=== PATIENT | male | born 1955 | race Caucasian/White ===

== ENCOUNTER 2017-03-31 16:53 | Inpatient (IN) | payer BC ==
[2017-03-31 17:10] VITALS: BMI 29.0
--- NOTE | 2017-03-31 17:31 | PDOC ---
History of Present Illness - General History Source: Patient, Old Records Exam Limitations: No Limitations - History of Present Illness Initial Comments: 03/31/17 19:06 The patient is a 61 year old male, with a significant past medical history of hypertension, hyperlipidemia, diabetes, on dialysis (//Sat via AVR shunt to the left upper extremity), who presents to the emergency department for evaluation. The patient reports that he went to dialysis 2 days ago but was unable to receive dialysis due to a problem with his shunt. Today, he returned to get dialysis but was only able to receive partial dialysis but his shunt is still not functioning correctly. The patient was sent to the ED for further evaluation. Currently in the ED, the patient denies any pain. The patients primary language is [place]i. Allergies: None reported. Past Surgical History: AVR shunt to the left upper extremity. Social History: Former smoker. Denies alcohol or drug use. PCP: Dr. Hampton Local Coordinator: Dr. Hernandez Vascular Surgeon: Dr. Payam Celis <Barbi Goodson - Last Filed: 03/31/17 19:05> <Arcelia Hallman - Last Filed: 04/01/17 12:09> - General Chief Complaint: Dialysis Shunt Problem Stated Complaint: DIALYSYS SHUNT PROBLEM Time Seen by Provider: 03/31/17 17:18 Past History <Barbi Goodson - Last Filed: 03/31/17 19:05> - Past Medical History Anemia: No Asthma: No Cancer: No Cardiac Disorders: No CVA: No COPD: No CHF: No Dementia: No Diabetes: Yes () Dialysis: Yes GI Disorders: No Disorders: Yes (kidney stones - lithotripsy) HTN: Yes Hypercholesterolemia: Yes Liver Disease: No Suicide Attempt (Hx): No Seizures: No Thyroid Disease: No - Surgical History Abdominal Surgery: No Appendectomy: No Cardiac Surgery: No Cholecystectomy: No Lung Surgery: No Neurologic Surgery: No Orthopedic Surgery: No - Psycho/Social/Smoking Cessation Hx Suicidal Ideation: No Smoking Status: Yes Smoking History: Former smoker Have you smoked in the past 12 months: No Number of Cigarettes Smoked Daily: 0 If you are a former smoker, when did you quit?: 20 yrs ago Information on smoking cessation initiated: No Hx Alcohol Use: No Drug/Substance Use Hx: No Substance Use Type: None Hx Substance Use Treatment: No <Arcelia Hallman - Last Filed: 04/01/17 12:09> - Past Medical History Allergies/Adverse Reactions: Allergies Allergy/AdvReac Type Severity Reaction Status Date / Time No Known Drug Allergies Allergy Verified 03/31/17 17:06 Home Medications: Ambulatory Orders Amlodipine Besylate [Norvasc -] 10 mg PO DAILY #0 tablet 12/27/12 Furosemide [Lasix -] 40 mg PO BID 07/08/16 Labetalol HCl [Normodyne -] 200 mg PO BID 07/08/16 Glyburide 5 mg PO BID 07/10/16 Alfuzosin HCl [Alfuzosin HCl ER] 10 mg PO DAILY 11/19/16 Sevelamer Carbonate [Renvela -] 800 mg PO TIDCM #90 tab 11/21/16 Sodium Bicarbonate - 650 mg PO BID #60 tablet 11/21/16 Hydralazine HCl 10 mg PO QID #120 tablet 11/22/16 Colesevelam HCl [Welchol (Nf)] 3,750 mg PO DAILY 03/31/17 Review of Systems - Review of Systems Able to Perform ROS?: Yes Comments:: 03/31/17 19:02 GENERAL/CONSTITUTIONAL: No fever or chills. No weakness. HEAD, EYES, EARS, NOSE AND THROAT: No change in vision. No ear pain or discharge. No sore throat. CARDIOVASCULAR: No chest pain or shortness of breath. RESPIRATORY: No cough, wheezing, or hemoptysis. GASTROINTESTINAL: No nausea, vomiting, diarrhea or constipation. GENITOURINARY: No dysuria, frequency, or change in urination. MUSCULOSKELETAL: No joint or muscle swelling or pain. No neck or back pain. EXTREMITY: +AVR shunt problem. SKIN: No rash. NEUROLOGIC: No headache, vertigo, loss of consciousness, or change in strength/ sensation. ENDOCRINE: No increased thirst. No abnormal weight change. HEMATOLOGIC/LYMPHATIC: No anemia, easy bleeding, or history of blood clots. ALLERGIC/IMMUNOLOGIC: No hives or skin allergy. <Barbi Goodson - Last Filed: 03/31/17 19:05> *Physical Exam - Vital Signs Last Vital Signs Temp Pulse Resp BP Pulse Ox 98.1 F 65 19 147/67 99 03/31/17 17:06 03/31/17 17:06 03/31/17 17:06 03/31/17 17:06 03/31/17 17:06 <Barbi Goodson - Last Filed: 03/31/17 19:05> - Vital Signs Last Vital Signs Temp Pulse Resp BP Pulse Ox 98.1 F 65 19 147/67 99 03/31/17 17:06 03/31/17 17:06 03/31/17 17:06 03/31/17 17:06 03/31/17 17:06 - Physical Exam Comments: GENERAL: Awake, alert, and fully oriented, in no acute distress HEAD: No signs of trauma EYES: PERRLA, EOMI, sclera anicteric, conjunctiva clear ENT: Auricles normal inspection, hearing grossly normal, nares patent, oropharynx clear without exudates. Moist mucosa NECK: Normal ROM, supple, no lymphadenopathy, JVD, or masses LUNGS: Breath sounds equal, clear to auscultation bilaterally. No wheezes, and no crackles HEART: Regular rate and rhythm, normal S1 and S2, no murmurs, rubs or gallops ABDOMEN: Soft, nontender, normoactive bowel sounds. No guarding, no rebound. No masses EXTREMITIES: L forearm with AVF, +thrill, 2+ pitting edema to forearm. No erythema. Remainder of extremities with normal range of motion, no edema. No clubbing or cyanosis. No cords, erythema, or tenderness NEUROLOGICAL: Cranial nerves II through XII grossly intact. Normal speech, normal gait SKIN: Warm, Dry, normal turgor, no rashes or lesions noted. <Arcelia Hallman - Last Filed: 04/01/17 12:09> ED Treatment Course - LABORATORY CBC & Chemistry Diagram: 03/31/17 17:45 03/31/17 17:50 <Barbi Goodson - Last Filed: 03/31/17 19:05> - LABORATORY CBC & Chemistry Diagram: 04/01/17 06:30 04/01/17 05:35 <Arcelia Hallman - Last Filed: 04/01/17 12:09> Medical Decision Making - Medical Decision Making 03/31/17 17:[address] Payam Celis at 17:32, 18:05. Referred to answering service, awaiting callback. Dr. Celis returned call at 18:18, case discussed. <Barbi Goodson - Last Filed: 03/31/17 19:05> - Medical Decision Making 03/31/17 19:05 Case d/w Dr. Celis. Patient will need to be admitted for HD. Awaiting CMP results for potassium level. If elevated, will need emergent HD, will contact Dr. Wu. If wnl, can have shunt evaluated tomorrow and HD afterwards. Endorsed to Dr. Hall. <Arcelia Hallman - Last Filed: 04/01/17 12:09> *DC/Admit/Observation/Transfer - Attestations Scribe Attestion: 03/31/17 17:31 Documentation prepared by Barbi Goodson, acting as medical care administrator for Arcelia Hallman MD. <Barbi Goodson - Last Filed: 03/31/17 19:05> <Arcelia Hallman - Last Filed: 04/01/17 12:09> Diagnosis at time of Disposition: CKD (chronic kidney disease) Qualifiers: Chronic kidney disease stage: unspecified stage Qualified Code(s): N18.9 - Chronic kidney disease, unspecified
[2017-03-31 18:03] LABS: BASOPHIL 0.5 % (0-2.0); EOSINOPHIL 3.1 % (0-4.5); MCH 30.6 pg (25.7-33.7); MCHC 32.5 g/dl (32.0-35.9); MEAN CELL VOLUME 94.4 fl (80-96); MEAN PLT VOLUME 7.4 fl (7.5-11.1); NEUTROPHILS 67.3 % (42.8-82.8); PLATELET COUNT 213 K/MM3 (134-434); RDW 17.4 % (11.9-15.9); WHITE BLOOD COUNT 6.5 K/mm3 (4.0-10.0)
[2017-03-31 18:16] LABS: INR 1.04 (0.82-1.09); PROTHROMBIN TIME (PATIENT) 11.4 SEC (9.98-11.88)
[2017-03-31 18:48] LABS: ALBUMIN 2.5 g/dl (3.4-5.0); CALCIUM 7.1 mg/dL (8.5-10.1)
--- NOTE | 2017-03-31 18:52 | PN ---
Progress Note (short form) - Note Progress Note: Vascular Surgery Pt seen and examined. Had issues with cannulation of left forearm avf. Will check labs today. Will need venogram in am to check for any stenosis. Payam Celis DO
[2017-03-31 18:59] LABS: BILIRUBIN,TOTAL 0.2 mg/dL (0.2-1.0); COCKROFT - GAULT 11.19; TOT PROT 5.8 g/dl (6.4-8.2)
[2017-03-31 19:36] LABS: CREATININE 7.8 mg/dL (0.7-1.3)
--- NOTE | 2017-03-31 19:40 | PDOC ---
*Physical Exam - Vital Signs Last Vital Signs Temp Pulse Resp BP Pulse Ox 98.1 F 65 19 147/67 99 03/31/17 17:06 03/31/17 17:06 03/31/17 17:06 03/31/17 17:06 03/31/17 17:06 ED Treatment Course - LABORATORY CBC & Chemistry Diagram: 03/31/17 17:45 03/31/17 17:50 - ADDITIONAL ORDERS Additional order review: Laboratory Results 03/31/17 03/31/17 03/31/17 17:50 17:50 17:50 INR 1.04 Sodium 141 Potassium 5.5 H D Chloride 112 H Carbon Dioxide 15 L Anion Gap 14 BUN 79 H D Creatinine 7.8 H* D Creat Clearance w eGFR 7.05 Random Glucose 140 H D Calcium 7.1 L Total Bilirubin 0.2 D AST 44 H D ALT 45 Alkaline Phosphatase 162 H D Total Protein 5.8 L Albumin 2.5 L Blood Type O POSITIVE Antibody Screen Positive H 03/31/17 17:45 RBC 2.54 L D MCV 94.4 MCHC 32.5 RDW 17.4 H D MPV 7.4 L D Neutrophils % 67.3 Lymphocytes % 19.0 D Monocytes % 10.1 Eosinophils % 3.1 Basophils % 0.5 *DC/Admit/Observation/Transfer Diagnosis at time of Disposition: CKD (chronic kidney disease) Qualifiers: Chronic kidney disease stage: unspecified stage Qualified Code(s): N18.9 - Chronic kidney disease, unspecified - Discharge Dispostion Condition at time of disposition: Stable Admit: Yes
[2017-03-31] MEDS ORDERED: SODIUM POLYSTYRENE SULFONATE 15 GM/60 ML BOTTLE PO ONE (19:43)
[2017-03-31] MEDS ORDERED: SODIUM POLYSTYRENE SULFONATE 15 GM/60 ML BOTTLE ONE (20:22)
--- NOTE | 2017-03-31 20:50 | HP ---
<Osmar Vargas - Last Filed: 03/31/17 21:36> CHIEF COMPLAINT: Inability To Complete Dialysis PCP: Dr. Hampton HISTORY OF PRESENT ILLNESS: The patient is a 61 year old male, with past medical history of ESRD on dialysis for the past month via left forearm AV fistula, presents to the ED from dialysis center due to inability to complete dialysis secondary to issues with cannulation He denies fever, chills. Reports pain in left forearm for past 2-3 hours. PAST MEDICAL HISTORY: Hypertension, Hyperlipidemia, Diabetes, ESRD, anemia of chronic disease PAST SURGICAL HISTORY: Left forearm AVF Social History: Smoking: Former smoker 20 pack/year (quit 20 years ago) Alcohol: Denied Drugs: Denied Family History: Diabetes Allergies No Known Drug Allergies Allergy (Verified 03/31/17 17:06) HOME MEDICATIONS: Home Medications Medication Instructions Recorded Amlodipine Besylate [Norvasc -] 10 mg PO DAILY #0 tablet 12/27/12 Furosemide [Lasix -] 40 mg PO BID 07/08/16 Labetalol HCl [Normodyne -] 200 mg PO BID 07/08/16 Glyburide 5 mg PO BID 07/10/16 Alfuzosin HCl [Alfuzosin HCl ER] 10 mg PO DAILY 11/19/16 Sevelamer Carbonate [Renvela -] 800 mg PO TIDCM #90 tab 11/21/16 Sodium Bicarbonate - 650 mg PO BID #60 tablet 11/21/16 Hydralazine HCl 10 mg PO QID #120 tablet 11/22/16 Colesevelam HCl [Welchol (Nf)] 3,750 mg PO DAILY 03/31/17 REVIEW OF SYSTEMS CONSTITUTIONAL: Absent: fever, chills, diaphoresis, generalized weakness, malaise, loss of appetite, weight change HEENT: Absent: rhinorrhea, nasal congestion, throat pain, throat swelling, difficulty swallowing, mouth swelling, ear pain, eye pain, visual changes CARDIOVASCULAR: Absent: chest pain, syncope, palpitations, irregular heart rate, lightheadedness , peripheral edema RESPIRATORY: Absent: cough, shortness of breath, dyspnea with exertion, orthopnea, wheezing, stridor, hemoptysis GASTROINTESTINAL: Absent: abdominal pain, abdominal distension, nausea, vomiting, diarrhea, constipation, melena, hematochezia GENITOURINARY: Absent: dysuria, frequency, urgency, hesitancy, hematuria, flank pain, genital pain MUSCULOSKELETAL: Absent: myalgia, arthralgia, joint swelling, back pain, neck pain SKIN: Absent: rash, itching, pallor HEMATOLOGIC/IMMUNOLOGIC: Present: As mentioned in HPI Absent: easy bleeding, easy bruising, frequent infections ENDOCRINE: Absent: unexplained weight gain, unexplained weight loss, heat intolerance, cold intolerance NEUROLOGIC: Absent: headache, focal weakness or paresthesias, dizziness, unsteady gait, seizure, mental status changes, bladder or bowel incontinence PSYCHIATRIC: Absent: anxiety, depression, suicidal or homicidal ideation, hallucinations. PHYSICAL EXAMINATION Vital Signs - 24 hr 03/31/17 03/31/17 20:46 20:57 Temperature 97.6 F Pulse Rate [ 63 Right] Respiratory 18 Rate Blood Pressure 163/70 [Right Arm] O2 Sat by Pulse 99 99 Oximetry (%) GENERAL: Awake, alert, and fully oriented, in no acute distress HEENT: Atraumatic. PERRLA, EOMI. Moist mucosa. No JVD LUNGS: No distress, speaks full sentences, clear to auscultation bilaterally HEART: Regular rate and rhythm, normal S1 and S2, no murmurs, rubs or gallops, peripheral pulses normal and equal bilaterally. ABDOMEN: Soft, nontender, normoactive bowel sounds. No guarding, no rebound. No masses EXTREMITIES: (+) Left arm radial cephalic fistula, Normal range of motion, 1+ edema bilateral lower extremities. No clubbing or cyanosis. NEUROLOGICAL: Cranial nerves II through XII grossly intact. Normal speech, normal gait, no focal sensorimotor deficits SKIN: Warm, Dry, normal turgor, no rashes or lesions noted. Labs: CBCD WBC 6.5 K/mm3 (4.0-10.0) 03/31/17 17:45 RBC 2.54 M/mm3 (4.00-5.60) L D 03/31/17 17:45 Hgb 7.8 GM/dL (11.7-16.9) L D 03/31/17 17:45 Hct 24.0 % (35.4-49) L D 03/31/17 17:45 MCV 94.4 fl (80-96) 03/31/17 17:45 MCHC 32.5 g/dl (32.0-35.9) 03/31/17 17:45 RDW 17.4 % (11.9-15.9) H D 03/31/17 17:45 Plt Count 213 K/MM3 (134-434) D 03/31/17 17:45 MPV 7.4 fl (7.5-11.1) L D 03/31/17 17:45 CMP Sodium 141 mmol/L (136-145) 03/31/17 17:50 Potassium 5.5 mmol/L (3.5-5.1) H D 03/31/17 17:50 Chloride 112 mmol/L (98-107) H 03/31/17 17:50 Carbon Dioxide 15 mmol/L (21-32) L 03/31/17 17:50 Anion Gap 14 (8-16) 03/31/17 17:50 BUN 79 mg/dL (7-18) H D 03/31/17 17:50 Creatinine 7.8 mg/dL (0.7-1.3) H* D 03/31/17 17:50 Creat Clearance w eGFR 7.05 (>60) 03/31/17 17:50 Calcium 7.1 mg/dL (8.5-10.1) L 03/31/17 17:50 Total Bilirubin 0.2 mg/dL (0.2-1.0) D 03/31/17 17:50 AST 44 U/L (15-37) H D 03/31/17 17:50 ALT 45 U/L (12-78) 03/31/17 17:50 Alkaline Phosphatase 162 U/L (45-117) H D 03/31/17 17:50 Total Protein 5.8 g/dl (6.4-8.2) L 03/31/17 17:50 Albumin 2.5 g/dl (3.4-5.0) L 03/31/17 17:50 Imaging: EXAM#: TYPE/EXAM: RESULT: [id number] RAD/CHEST PA LAT HISTORY PROVIDED: Rule out infiltrate PA and lateral projections of the chest are submitted. The heart size is enlarged. The lung jeong are free of pulmonary infiltrates or pleural effusions. There are slightly increased interstitial markings diffusely that may be chronic in nature. Minimal platelike atelectasis is seen at the right lung base. IMPRESSION: Cardiomegaly, no acute pathology. Reported By: Fredi Bains MD 03/31/172103 ASSESSMENT/PLAN: 1. 61 yo m with hx of ESRD that presents to the ED with possible clot in left radial cephalic fistula suspected. Hemodialysis was attempted today however it is unclear if any fluid was removed. Patient has no signs of respiratory distress of fluid overload. He has urinary output. - NPO after midnight - Venography in AM - Vascular surgery consult - If needed temporary dialysis access will be placed - Continue current meds - Repeat hemoglobin in AM Hospitalized for observation. Documentation prepared by Osmar Vargas, acting as medical receptionist assistant for Dr. Sal MD. <Chang Huang - Last Filed: 03/31/17 23:03> Visit type - Emergency Visit Emergency Visit: Yes ED Registration Date: 03/31/17 Care time: The patient presented to the Emergency Department on the above date and was hospitalized for further evaluation of their emergent condition. - New Patient This patient is new to me today: Yes Date on this admission: 03/31/17 - Critical Care Critical Care patient: No
[2017-03-31] MEDS: LABETALOL HCL 200 MG TABLET (FP) PO SCH (23:32)
[2017-03-31] MEDS: hydrALAZINE HCL 10 MG TABLET PO SCH (23:32)
[2017-03-31] MEDS: SODIUM BICARBONATE 650 MG TABLET PO SCH (23:32)
[2017-03-31] MEDS: HEPARIN NA (PORCINE) 5,000 UNITS/ML 1ML VIAL SQ SCH (23:33)
[2017-04-01] MEDS: INSULIN SLIDING SCALE (NOVOLOG) 1 VIAL SQ SCH ×3 (05:59→17:36)
[2017-04-01] MEDS: FUROSEMIDE 40 MG TABLET (FP) PO SCH ×3 (05:59→17:36)
[2017-04-01 07:36] LABS: BASOPHIL 0.6 % (0-2.0); MCH 31.3 pg (25.7-33.7); MEAN CELL VOLUME 94.8 fl (80-96); MEAN PLT VOLUME 7.9 fl (7.5-11.1); NEUTROPHILS 62.8 % (42.8-82.8); PLATELET COUNT 191 K/MM3 (134-434); RDW 17.6 % (11.9-15.9); WHITE BLOOD COUNT 5.6 K/mm3 (4.0-10.0)
[2017-04-01 08:07] LABS: CALCIUM 7.2 mg/dL (8.5-10.1); COCKROFT - GAULT 11.05
[2017-04-01] MEDS: SEVELAMER CARBONATE 800 MG TAB (FP) PO SCH ×4 (08:40→17:36)
[2017-04-01 09:00] LABS: CREATININE 7.9 mg/dL (0.7-1.3)
[2017-04-01] MEDS ORDERED: COLESEVELAM HCL PO SCH (10:00)
[2017-04-01] MEDS: HEPARIN NA (PORCINE) 5,000 UNITS/ML 1ML VIAL SQ SCH ×2 (10:24→21:17)
[2017-04-01] MEDS: LABETALOL HCL 200 MG TABLET (FP) PO SCH ×2 (10:24→21:17)
[2017-04-01] MEDS: amLODIPine BESYLATE 10 MG TABLET (FP) PO SCH (10:24)
[2017-04-01] MEDS: hydrALAZINE HCL 10 MG TABLET PO SCH ×4 (10:24→21:17)
[2017-04-01] MEDS: SODIUM BICARBONATE 650 MG TABLET PO SCH (10:24)
[2017-04-01] MEDS ORDERED: DEXTROSE 50%-WATER 50 ML VIAL IVPUSH ONE (12:00)
--- NOTE | 2017-04-01 14:29 | PN ---
Physical Exam: SUBJECTIVE: Patient seen and examined OBJECTIVE: Vital Signs Period Temp Pulse Resp BP Sys/Adam Pulse Ox Last 24 Hr 97.4 F-98.6 F 60-72 17-20 122-176/61-86 98-99 GENERAL: The patient is awake, alert, and fully oriented, in no acute distress. HEAD: Normal with no signs of trauma. EYES: PERRL, extraocular movements intact, sclera anicteric, conjunctiva clear. No ptosis. ENT: Ears normal, nares patent, oropharynx clear without exudates, moist mucous membranes. NECK: Trachea midline, full range of motion, supple. LUNGS: Breath sounds equal, clear to auscultation bilaterally, no wheezes, no crackles, no accessory muscle use. HEART: Regular rate and rhythm, S1, S2 without murmur, rub or gallop. ABDOMEN: Soft, nontender, nondistended, normoactive bowel sounds, no guarding, no rebound, no hepatosplenomegaly, no masses. EXTREMITIES: 2+ pulses, warm, well-perfused, no edema. NEUROLOGICAL: Cranial nerves II through XII grossly intact. Normal speech, gait not observed. PSYCH: Normal mood, normal affect. SKIN: Warm, dry, normal turgor, no rashes or lesions noted Laboratory Results - last 24 hr 04/01/17 04/01/17 04/01/17 05:34 05:35 06:30 WBC 5.6 RBC 2.51 L Hgb 7.8 L Hct 23.8 L MCV 94.8 MCHC 33.0 RDW 17.6 H Plt Count 191 MPV 7.9 Neutrophils % 62.8 Lymphocytes % 21.8 Monocytes % 10.8 H Eosinophils % 4.0 Basophils % 0.6 Sodium 143 Potassium 4.7 Chloride 114 H Carbon Dioxide 16 L Anion Gap 13 BUN 79 H Creatinine 7.9 H* POC Glucometer 80 Random Glucose 71 L D Calcium 7.2 L 04/01/17 11:35 WBC RBC Hgb Hct MCV MCHC RDW Plt Count MPV Neutrophils % Lymphocytes % Monocytes % Eosinophils % Basophils % Sodium Potassium Chloride Carbon Dioxide Anion Gap BUN Creatinine POC Glucometer 65 Random Glucose Calcium Active Medications Generic Name Dose Route Start Last Admin Trade Name Freq PRN Reason Stop Dose Admin Amlodipine Besylate 10 mg 04/01/17 10:00 04/01/17 10:24 Norvasc - PO 10 mg DAILY [facility] Administration Furosemide 40 mg 04/01/17 06:00 04/01/17 14:21 Lasix - PO Not Given BIDLASIX [facility] Heparin Sodium (Porcine) 5,000 unit 03/31/17 22:00 04/01/17 10:24 Heparin - SQ 5,000 unit BID [facility] Administration Hydralazine HCl 10 mg 03/31/17 22:00 04/01/17 14:23 Apresoline - PO Not Given QID [facility] Insulin Aspart 1 vial 04/01/17 07:00 04/01/17 11:36 Novolog Vial Sliding Scale - SQ Not Given TIDAC [facility] Protocol Labetalol HCl 200 mg 03/31/17 22:00 04/01/17 10:24 Normodyne - PO 200 mg BID [facility] Administration Non-Formulary Medication 3,750 mg 04/01/17 10:00 Colesevelam Hcl [Welchol (Nf)] PO DAILY [facility] Sevelamer Carbonate 800 mg 04/01/17 08:00 04/01/17 14:23 Renvela - PO Not Given TIDCM [facility] Sodium Bicarbonate 650 mg 03/31/17 22:00 04/01/17 10:24 Sodium Bicarbonate - PO 650 mg BID [facility] Administration Imaging: EXAM#: TYPE/EXAM: RESULT: [id number] RAD/CHEST PA LAT HISTORY PROVIDED: Rule out infiltrate PA and lateral projections of the chest are submitted. The heart size is enlarged. The lung jeong are free of pulmonary infiltrates or pleural effusions. There are slightly increased interstitial markings diffusely that may be chronic in nature. Minimal platelike atelectasis is seen at the right lung base. IMPRESSION: Cardiomegaly, no acute pathology. Reported By: Fredi Bains MD 03/31/17 8110 ASSESSMENT/PLAN: 61 year old male with CKD stage 5 on HD x one month; presented to the ED due to problems with AV shunt. Attempt dialysis today, then OR. #possible stenosis of AVF left forearm -venogram -attempt HD -bmp, cbc, electrolytes -vascular and renal consulted #CKD -trend labs -renvela 800mg tid -sodium [id number] po bid -HD #hypertension: -norvasc 10mg po qd -hydralazine 10mg po qid -lasix 40mg qd #diabetes mellitus II: -insulin SS -bgm FEN: Fluids; n/a Electrolytes: trend Diet: renal ; currently npo for OR VTE prophylaxis: haparin sq bid Disposition: needs HD and shunt correction Visit type - Emergency Visit Emergency Visit: Yes ED Registration Date: 03/31/17 Care time: The patient presented to the Emergency Department on the above date and was hospitalized for further evaluation of their emergent condition. - New Patient This patient is new to me today: Yes Date on this admission: 04/01/17 - Critical Care Critical Care patient: No
[2017-04-01] MEDS ORDERED: TAMSULOSIN HCL 0.4 MG CAP.ER.24H (FP) PO ONE ×2 (14:39→17:45)
--- NOTE | 2017-04-01 16:56 | CONSULT ---
Consult Consult Specialty:: Nephrology Reason for Consultation:: ESRD - History of Present Illness Chief Complaint: av fistula malfunction History of Present Illness: Pt is a 61 year old male with hx of HTN, ESRD, Chol, and DM who was sent in from HD for non functioning av-fistula. He is awake and alert. He denies shortness of breath. He is awake and alert. He denies fevers or chills. He denies pain in his arm. He has a left arm av fistula. - History Source History Provided By: Patient, Medical Record - Past Medical History Cardio/Vascular: Yes: CHF, HTN Renal/: Yes: Renal Inusuff, Hemodialysis Endocrine: Yes: Diabetes Mellitus - Alcohol/Substance Use Hx Alcohol Use: No - Smoking History Smoking history: Former smoker Have you smoked in the past 12 months: No Aproximately how many cigarettes per day: 0 If you are a former smoker, when did you quit?: 20 yrs ago Home Medications - Allergies Allergies/Adverse Reactions: Allergies Allergy/AdvReac Type Severity Reaction Status Date / Time No Known Drug Allergies Allergy Verified 03/31/17 17:06 - Home Medications Home Medications: Ambulatory Orders Amlodipine Besylate [Norvasc -] 10 mg PO DAILY #0 tablet 12/27/12 Furosemide [Lasix -] 40 mg PO BID 07/08/16 Labetalol HCl [Normodyne -] 200 mg PO BID 07/08/16 Glyburide 5 mg PO BID 07/10/16 Alfuzosin HCl [Alfuzosin HCl ER] 10 mg PO DAILY 11/19/16 Sevelamer Carbonate [Renvela -] 800 mg PO TIDCM #90 tab 11/21/16 Sodium Bicarbonate - 650 mg PO BID #60 tablet 11/21/16 Hydralazine HCl 10 mg PO QID #120 tablet 11/22/16 Colesevelam HCl [Welchol (Nf)] 3,750 mg PO DAILY 03/31/17 Family Disease History - Family Disease History Family History: Denies Review of Systems - Review of Systems Constitutional: reports: No Symptoms Eyes: reports: No Symptoms HENT: reports: No Symptoms Neck: reports: No Symptoms Cardiovascular: reports: No Symptoms Respiratory: reports: No Symptoms Gastrointestinal: reports: No Symptoms Genitourinary: reports: No Symptoms Musculoskeletal: reports: No Symptoms Integumentary: reports: No Symptoms Neurological: reports: No Symptoms Endocrine: reports: No Symptoms Hematology/Lymphatic: reports: No Symptoms Psychiatric: reports: No Symptoms Physical Exam Vital Signs: Vital Signs Temperature 98.8 F 04/01/17 13:40 Pulse Rate 66 04/01/17 16:44 Respiratory Rate 18 04/01/17 16:44 Blood Pressure 150/106 04/01/17 16:44 O2 Sat by Pulse Oximetry (%) 98 04/01/17 09:00 Constitutional: Yes: Calm Eyes: Yes: Conjunctiva Clear HENT: Yes: Atraumatic Cardiovascular: Yes: S1, S2 Respiratory: Yes: CTA Bilaterally Gastrointestinal: Yes: Soft Musculoskeletal: Yes: WNL Extremities: Yes: Other (left arm fistula) Neurological: Yes: Oriented Psychiatric: Yes: Oriented Labs: CBC, BMP 04/01/17 06:30 04/01/17 05:35 Laboratory Tests 03/31/17 04/01/17 17:45 06:30 WBC 6.5 5.6 Hgb 7.8 L D 7.8 L Plt Count 213 D 191 Laboratory Tests 03/31/17 17:50 Potassium 5.5 H D Imaging - Results Chest X-ray: Report Reviewed Problem List - Problems (1) Hyperkalemia Code(s): E87.5 - HYPERKALEMIA (2) Diabetes Code(s): E11.9 - TYPE 2 DIABETES MELLITUS WITHOUT COMPLICATIONS (3) HTN (hypertension) Code(s): I10 - ESSENTIAL (PRIMARY) HYPERTENSION (4) Hepatitis C Code(s): B19.20 - UNSPECIFIED VIRAL HEPATITIS C WITHOUT HEPATIC COMA (5) Hyperlipidemia Code(s): E78.5 - HYPERLIPIDEMIA, UNSPECIFIED (6) ESRD (end stage renal disease) Code(s): N18.6 - END STAGE RENAL DISEASE Assessment/Plan Current Medications Generic Name Dose Route Start Last Admin Trade Name Freq PRN Reason Stop Dose Admin Amlodipine Besylate 10 mg 04/01/17 10:00 04/01/17 10:24 Norvasc - PO 10 mg DAILY [facility] Administration Furosemide 40 mg 04/01/17 06:00 04/01/17 14:21 Lasix - PO Not Given BIDLASIX [facility] Heparin Sodium (Porcine) 5,000 unit 03/31/17 22:00 04/01/17 10:24 Heparin - SQ 5,000 unit BID [facility] Administration Hydralazine HCl 10 mg 03/31/17 22:00 04/01/17 14:23 Apresoline - PO Not Given QID [facility] Insulin Aspart 1 vial 04/01/17 07:00 04/01/17 11:36 Novolog Vial Sliding Scale - SQ Not Given TIDAC [facility] Protocol Labetalol HCl 200 mg 03/31/17 22:00 04/01/17 10:24 Normodyne - PO 200 mg BID [facility] Administration Non-Formulary Medication 3,750 mg 04/01/17 10:00 Colesevelam Hcl [Welchol (Nf)] PO DAILY [facility] Sevelamer Carbonate 800 mg 04/01/17 08:00 04/01/17 14:23 Renvela - PO Not Given TIDCM [facility] Sodium Bicarbonate 650 mg 03/31/17 22:00 04/01/17 10:24 Sodium Bicarbonate - PO 650 mg BID [facility] Administration Impression 1. ESRD 2. hyperkalemia 3. HTN 4. DM 5. Hx of Hep C 6. av fistula malfunction Plan - discussed with vascular and he recommended a trial of HD - we were able to use the fistula for a dialysis session with a 300 blood flow - resume home meds - possible fistulogram, fistula appears to be deep - can stop PO bicarb Dr Wu
--- NOTE | 2017-04-01 17:50 | PN ---
Teaching Attending Note Name of Resident: Ashley Carr ATTENDING PHYSICIAN STATEMENT I saw and evaluated the patient. I reviewed the resident's note and discussed the case with the resident. I agree with the resident's findings and plan as documented. SUBJECTIVE:currently asymptomatic. tolerated dialysis today. missed 2 sessions due to fistula not accessible. denies Cp, SOB,fever, chills, N/V/C/D OBJECTIVE: Last Vital Signs Temp Pulse Resp BP Pulse Ox 98.8 F 67 18 149/73 98 04/01/17 13:40 04/01/17 17:05 04/01/17 17:05 04/01/17 17:05 04/01/17 09:00 General NAD CV S1 S2 RRR Lungs CTA B/L no wheezing/rlaes/rhonchi Extremities +palpable thrill LUE. trace pitting pedal edema ASSESSMENT AND PLAN: 61yo M with PMH ESRD on HD (TTS), HTN and DM presented to the ER and was admitted for further evalaution of their emergent condition 1. Malfunctioning AV fistula- tolerated HD today. plan for fisulagram in the AM. NPO after midnight. resume home medications. 2. HTN- controlled. cont home medications 3. Hyperkalemia- resolved 4. DM- only on sufulyonyrea. hold at this time. BGM, ISS 5. Normocytic anemia- stable. no signs of bleeding. check iron studies. likely due to chronic disease.
--- NOTE | 2017-04-01 22:56 | EKG ---
Test Reason : Blood Pressure : / mmHG Vent. Rate : 058 BPM Atrial Rate : 058 BPM P-R Int : 174 ms QRS Dur : 084 ms QT Int : 444 ms P-R-T Axes : 056 010 047 degrees QTc Int : 435 ms SINUS BRADYCARDIA OTHERWISE NORMAL ECG WHEN COMPARED WITH ECG OF 20-NOV-2016 09:23, T WAVE VARIATION Confirmed by ABBIE JONES MD ([id number]) on 04/01/2017 10:56:14 PM Referred By: Confirmed By:ABBIE JONES MD
[2017-04-02] MEDS: FUROSEMIDE 40 MG TABLET (FP) PO SCH ×2 (06:08→13:48)
[2017-04-02] MEDS: INSULIN SLIDING SCALE (NOVOLOG) 1 VIAL SQ SCH ×2 (06:08→12:39)
[2017-04-02] MEDS: SEVELAMER CARBONATE 800 MG TAB (FP) PO SCH ×2 (08:27→12:48)
[2017-04-02 08:41] LABS: BASOPHIL 0.7 % (0-2.0); EOSINOPHIL 2.5 % (0-4.5); MCH 31.6 pg (25.7-33.7); MEAN CELL VOLUME 92.9 fl (80-96); MEAN PLT VOLUME 7.6 fl (7.5-11.1); NEUTROPHILS 67.6 % (42.8-82.8); PLATELET COUNT 202 K/MM3 (134-434); RDW 16.5 % (11.9-15.9)
[2017-04-02 08:56] LABS: ALBUMIN 2.5 g/dl (3.4-5.0); BILIRUBIN,TOTAL 0.6 mg/dL (0.2-1.0); COCKROFT - GAULT 15.87; CREATININE 5.5 mg/dL (0.7-1.3); MAGNESIUM 1.8 mg/dL (1.8-2.4); PHOSPHOROUS 4.7 mg/dL (2.5-4.9)
[2017-04-02 08:57] LABS: TOT PROT 5.8 g/dl (6.4-8.2)
[2017-04-02 09:28] LABS: CALCIUM 6.9 mg/dL (8.5-10.1)
[2017-04-02 09:58] VITALS: BP 156/77; PULSE 63; TEMP 98.4
--- NOTE | 2017-04-02 11:00 | PN ---
Progress Note (short form) - Note Progress Note: Vascular Surgery Spoke to renal. Pt tolerated HD and had good flow. Ok to DC home. Will follow in office. Please make pt appt prior to DC [phone] Payam Celis DO
--- NOTE | 2017-04-02 11:58 | PN ---
Teaching Attending Note Name of Resident: Ashley Carr ATTENDING PHYSICIAN STATEMENT I saw and evaluated the patient. I reviewed the resident's note and discussed the case with the resident. I agree with the resident's findings and plan as documented. SUBJECTIVE:currently asymptomatic. denies CP, SOB,fever, chills, N/V/C/D. tolerated HD OBJECTIVE: Last Vital Signs Temp Pulse Resp BP Pulse Ox 98.4 F 63 20 156/77 98 04/02/17 09:58 04/02/17 09:58 04/02/17 09:58 04/02/17 09:58 04/01/17 21:00 General NAD CV S1 S2 RRR Lungs CTA B/L no wheezing/rlaes/rhonchi Extremities +palpable thrill LUE. trace pitting pedal edema ASSESSMENT AND PLAN: 61yo M with PMH ESRD on HD (TTS), HTN and DM presented to the ER and was admitted for further evalaution of their emergent condition 1. Malfunctioning AV fistula- spoke with renal. no difficulty accessing fistula yesterday. can d/c home to continue normal HD schedule. can f/u with vascular surgery to assess fistula if theres difficulty. 2. HTN- controlled. cont home medications 3. Hyperkalemia- resolved 4. DM- only on sufulyonyrea. hold at this time. BGM, ISS 5. Normocytic anemia- stable. no signs of bleeding. iron studies pending.
[2017-04-02] MEDS ORDERED: CALCITRIOL 0.25 MCG CAPSULE (FP) PO SCH (12:30)
[2017-04-02] MEDS ORDERED: CALCIUM 500MG/VIT-D 200 UNITS COMBO TABLET (FP) PO SCH (12:30)
--- NOTE | 2017-04-02 12:34 | PN ---
Progress Note, Physician History of Present Illness: Pt seen and examined at bedside. He is awake and alert. He has no complaints. - Current Medication List Current Medications: Active Medications Amlodipine Besylate (Norvasc -) 10 mg PO DAILY [facility] Last Admin: 04/01/17 10:24 Dose: 10 mg Calcium Carbonate/Cholecalciferol (Os-Sanjeev 500+D -) 2 tab PO DAILY [facility] Furosemide (Lasix -) 40 mg PO BIDLASIX [facility] Last Admin: 04/02/17 06:08 Dose: Not Given Heparin Sodium (Porcine) (Heparin -) 5,000 unit SQ BID [facility] Last Admin: 04/01/17 21:17 Dose: 5,000 unit Hydralazine HCl (Apresoline -) 10 mg PO QID [facility] Last Admin: 04/01/17 21:17 Dose: 10 mg Insulin Aspart (Novolog Vial Sliding Scale -) 1 vial SQ TIDAC [facility] PRN Reason: Protocol Last Admin: 04/02/17 06:08 Dose: Not Given Labetalol HCl (Normodyne -) 200 mg PO BID [facility] Last Admin: 04/01/17 21:17 Dose: 200 mg Non-Formulary Medication (Colesevelam Hcl [Welchol (Nf)]) 3,750 mg PO DAILY [facility] Sevelamer Carbonate (Renvela -) 800 mg PO TIDCM [facility] Last Admin: 04/02/17 08:27 Dose: Not Given - Objective Vital Signs: Vital Signs Temperature 98.4 F 04/02/17 09:58 Pulse Rate 63 04/02/17 09:58 Respiratory Rate 20 04/02/17 09:58 Blood Pressure 156/77 04/02/17 09:58 O2 Sat by Pulse Oximetry (%) 98 04/01/17 21:00 Constitutional: Yes: Calm Eyes: Yes: Conjunctiva Clear HENT: Yes: Atraumatic Neck: Yes: Supple Cardiovascular: Yes: S1, S2 Respiratory: Yes: CTA Bilaterally Gastrointestinal: Yes: Normal Bowel Sounds, Soft Genitourinary: Yes: WNL Musculoskeletal: Yes: WNL Extremities: Yes: Other (left arm fistula with thrill and bruit) Neurological: Yes: Oriented Psychiatric: Yes: Oriented Labs: CBC, BMP 04/02/17 07:50 04/02/17 07:50 INR, PTT INR 1.04 (0.82-1.09) 03/31/17 17:50 Problem List - Problems (1) Hyperkalemia Code(s): E87.5 - HYPERKALEMIA (2) Diabetes Code(s): E11.9 - TYPE 2 DIABETES MELLITUS WITHOUT COMPLICATIONS (3) HTN (hypertension) Code(s): I10 - ESSENTIAL (PRIMARY) HYPERTENSION (4) Hepatitis C Code(s): B19.20 - UNSPECIFIED VIRAL HEPATITIS C WITHOUT HEPATIC COMA (5) Hyperlipidemia Code(s): E78.5 - HYPERLIPIDEMIA, UNSPECIFIED (6) ESRD (end stage renal disease) Code(s): N18.6 - END STAGE RENAL DISEASE Assessment/Plan Current Medications Generic Name Dose Route Start Last Admin Trade Name Freq PRN Reason Stop Dose Admin Amlodipine Besylate 10 mg 04/01/17 10:00 04/01/17 10:24 Norvasc - PO 10 mg DAILY [facility] Administration Calcitriol 0.25 mcg 04/02/17 12:30 Rocaltrol - PO 04/02/17 12:31 DAILY ONE Calcium Carbonate/Cholecalciferol 2 tab 04/02/17 12:30 Os-Sanjeev 500+D - PO DAILY [facility] Furosemide 40 mg 04/01/17 06:00 04/02/17 06:08 Lasix - PO Not Given BIDLASIX [facility] Heparin Sodium (Porcine) 5,000 unit 03/31/17 22:00 04/01/17 21:17 Heparin - SQ 5,000 unit BID IDALIA Administration Hydralazine HCl 10 mg 03/31/17 22:00 04/01/17 21:17 Apresoline - PO 10 mg QID [facility] Administration Insulin Aspart 1 vial 04/01/17 07:00 04/02/17 06:08 Novolog Vial Sliding Scale - SQ Not Given TIDAC [facility] Protocol Labetalol HCl 200 mg 03/31/17 22:00 04/01/17 21:17 Normodyne - PO 200 mg BID ID[facility] Administration Non-Formulary Medication 3,750 mg 04/01/17 10:00 Colesevelam Hcl [Welchol (Nf)] PO DAILY [facility] Sevelamer Carbonate 800 mg 04/01/17 08:00 04/02/17 08:27 Renvela - PO Not Given TIDCM [facility] Impression 1. ESRD 2. hyperkalemia 3. HTN 4. DM 5. Hx of Hep C 6. av fistula malfunction Plan - will replace calcium - HD tomorrow as outpt - we were able to use the fistula last night with a 400 blood flow without any problem - can be discharged with outpt follow up - discussed with vascular - discussed with medical team - informed HD unit - will need calcium supplements Dr Wu
[2017-04-02] MEDS: HEPARIN NA (PORCINE) 5,000 UNITS/ML 1ML VIAL SQ SCH (12:47)
[2017-04-02] MEDS: hydrALAZINE HCL 10 MG TABLET PO SCH ×2 (12:47→13:48)
[2017-04-02] MEDS: amLODIPine BESYLATE 10 MG TABLET (FP) PO SCH (12:48)
[2017-04-02] MEDS: LABETALOL HCL 200 MG TABLET (FP) PO SCH (12:48)
--- NOTE | 2017-04-02 17:19 | DS ---
Physical Exam: SUBJECTIVE: Patient seen and examined , no new complaints, HD yesterday. OBJECTIVE: Vital Signs Period Temp Pulse Resp BP Sys/Adam Pulse Ox Last 24 Hr 98.4 F-99.7 F 63-68 18-20 150-162/69-77 98-98 PHYSICAL EXAM GENERAL: The patient is awake, alert, and fully oriented, in no acute distress. HEAD: Normal with no signs of trauma. EYES: PERRL, extraocular movements intact, sclera anicteric, conjunctiva clear. ENT: Ears normal, nares patent, oropharynx clear without exudates, moist mucous membranes. NECK: Trachea midline, full range of motion, supple. LUNGS: Breath sounds equal, clear to auscultation bilaterally, no wheezes, no crackles, no accessory muscle use. HEART: Regular rate and rhythm, S1, S2 without murmur, rub or gallop. ABDOMEN: Soft, nontender, nondistended, normoactive bowel sounds, no guarding, no rebound, no hepatosplenomegaly, no masses. EXTREMITIES: 2+ pulses, warm, well-perfused, no edema. Left UE av fistula; with thrill NEUROLOGICAL: Cranial nerves II through XII grossly intact. Normal speech, gait not observed. PSYCH: Normal mood, normal affect. SKIN: Warm, dry, normal turgor, no rashes or lesions noted. LABS Laboratory Results - last 24 hr 04/01/17 04/01/17 04/02/17 14:30 17:34 05:59 WBC RBC Hgb Hct MCV MCHC RDW Plt Count MPV Neutrophils % Lymphocytes % Monocytes % Eosinophils % Basophils % Sodium Potassium Chloride Carbon Dioxide Anion Gap BUN Creatinine Creat Clearance w eGFR POC Glucometer 97 82 Random Glucose Calcium Phosphorus Magnesium Ferritin Total Bilirubin AST ALT Alkaline Phosphatase Total Protein Albumin Antibody Identification Anti-fya Antigen Identification Y 04/02/17 04/02/17 04/02/17 07:50 07:50 07:50 WBC 6.0 RBC 2.78 L Hgb 8.8 L D Hct 25.8 L MCV 92.9 MCHC 34.0 RDW 16.5 H Plt Count 202 MPV 7.6 Neutrophils % 67.6 Lymphocytes % 17.9 Monocytes % 11.3 H Eosinophils % 2.5 Basophils % 0.7 Sodium 144 Potassium 4.3 Chloride 108 H Carbon Dioxide 28 D Anion Gap 8 BUN 44 H D Creatinine 5.5 H D Creat Clearance w eGFR 10.55 POC Glucometer Random Glucose 81 Calcium 6.9 L* Phosphorus 4.7 Magnesium 1.8 Ferritin 285.344 Total Bilirubin 0.6 D AST 21 D ALT 29 D Alkaline Phosphatase 163 H Total Protein 5.8 L Albumin 2.5 L Antibody Identification Antigen Identification 04/02/17 11:57 WBC RBC Hgb Hct MCV MCHC RDW Plt Count MPV Neutrophils % Lymphocytes % Monocytes % Eosinophils % Basophils % Sodium Potassium Chloride Carbon Dioxide Anion Gap BUN Creatinine Creat Clearance w eGFR POC Glucometer 79 Random Glucose Calcium Phosphorus Magnesium Ferritin Total Bilirubin AST ALT Alkaline Phosphatase Total Protein Albumin Antibody Identification Antigen Identification Imaging: EXAM#: TYPE/EXAM: RESULT: [id number] RAD/CHEST PA LAT HISTORY PROVIDED: Rule out infiltrate PA and lateral projections of the chest are submitted. The heart size is enlarged. The lung jeong are free of pulmonary infiltrates or pleural effusions. There are slightly increased interstitial markings diffusely that may be chronic in nature. Minimal platelike atelectasis is seen at the right lung base. IMPRESSION: Cardiomegaly, no acute pathology. 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 Nephrology and vascular consulted. Able to cannulate and hemodialysis was done without complications. Patient will follow up with Dr. Celis in office next week. Sodium bicarb was d/c'd, calcium supplements added to regimen. Minutes to complete discharge: 35 Discharge Summary Reason For Visit: CKD Condition: Improved - Instructions Diet, Activity, Other Instructions: Mr. Morrison, your AV fistula is working properly. You are set up for dialysis tomorrow. Please follow up with your primary and photovoltaic fabrication technician with in one week. Please follow up with vascular surgeon, Dr. Celis in his office, appointment made, . Continue to take a recommended medications. If you experience any other symptoms including chest pain , shortness of breath confusion, please return to the emergency room. Appointment with Dr Braulio Celis is on April 11 (friday)at 1:30pm Referrals: Rodrigo Hampton MD [Primary Care Provider] - Payam Celis MD [Staff Physician] - 1 Week (please make appointment for him before he is discharged) Merlin Wu MD [Staff Physician] - Disposition: HOME - Home Medications Comprehensive Discharge Medication List: Ambulatory Orders Amlodipine Besylate [Norvasc -] 10 mg PO DAILY #0 tablet 12/27/12 Furosemide [Lasix -] 40 mg PO BID 07/08/16 Labetalol HCl [Normodyne -] 200 mg PO BID 07/08/16 Glyburide 5 mg PO BID 07/10/16 Alfuzosin HCl [Alfuzosin HCl ER] 10 mg PO DAILY 11/19/16 Sevelamer Carbonate [Renvela -] 800 mg PO TIDCM #90 tab 11/21/16 Hydralazine HCl 10 mg PO QID #120 tablet 11/22/16 Colesevelam HCl [Welchol (Nf)] 3,750 mg PO DAILY 03/31/17 This patient is new to me today: No Emergency Visit: Yes ED Registration Date: 03/31/17 Care time: The patient presented to the Emergency Department on the above date and was hospitalized for further evaluation of their emergent condition. Critical Care patient: No - Discharge Referral Referred to [facility] Med [facility] No
[2017-04-03 08:08] LABS: SERUM IRON 43 ug/dL (38-169); TOTAL IRON BINDING CAPACITY 217 ug/dL (250-450); UIBC 174 ug/dL (111-343)
[2017-04-04 00:10] LABS: HEP B SURFACE AB Reactive (.)
== END 2017-04-02 15:38 | disposition home or self-care (01) | DRG 314 ==
LOC: JER 16:53 → JERBED 19:40 → J5S 21:23
PROVIDERS: ADMIT Internal Medicine; ATTEND Internal Medicine
PROC: 5A1D00Z (ICD-10-PCS; principal; 2017-04-01)
DX: T82.41XA Breakdown (mechanical) of vascular dialysis catheter, initial encounter (principal); N18.6 End stage renal disease; I12.0 Hypertensive chronic kidney disease with stage 5 chronic kidney disease or end stage renal disease; Y83.8 Other surgical procedures as the cause of abnormal reaction of the patient, or of later complication, without mention of misadventure at the time of the procedure; Y92.89 Other specified places as the place of occurrence of the external cause; E87.5 Hyperkalemia; E11.22 Type 2 diabetes mellitus with diabetic chronic kidney disease; Z99.2 Dependence on renal dialysis; D64.9 Anemia, unspecified; E78.5 Hyperlipidemia, unspecified; Z87.891 Personal history of nicotine dependence; Z86.19 Personal history of other infectious and parasitic diseases
CPT/HCPCS: 36415; 71020-TC; 80048; 80053; 82728; 83540; 83550; 83735; 84100; 85025; 85610; 86704; 86706; 86708; 86850; 86870; 86900; 86901; 86902; 87340; 87522; 93005; 93010; 99284-25; J1644